=== PATIENT | male | born 1980 | race Caucasian/White ===

== ENCOUNTER 2021-05-14 22:48 | Emergency (ER) | payer OTHER ==
[~2021-05-14] VITALS: Ht 175.3 cm; Wt 131.5 kg
[2021-05-15] MEDS ORDERED: ALLOPURINOL 10100 M2 PO (00:40)
[2021-05-15] MEDS ORDERED: HYDROCODON-ACE1 EAC7 PO (01:32)
[2021-05-15 02:22] VITALS: BP 133/93
== END 2021-05-15 02:24 | disposition home or self-care (01) ==
LOC: M.ERS 22:48
DX: S82.851A Displaced trimalleolar fracture of right lower leg, initial encounter for closed fracture (principal); Z79.899 Other long term (current) drug therapy; Z88.0 Allergy status to penicillin; X50.1XXA Overexertion from prolonged static or awkward postures, initial encounter; Y93.61 Activity, american tackle football; Y92.89 Other specified places as the place of occurrence of the external cause; Y99.8 Other external cause status